=== PATIENT | female | born 1985 ===

== ENCOUNTER 2016-04-25 17:05 | Emergency (ER) | payer MEDICAID, OTHER ==
[2016-04-25 17:31] VITALS: BP 98/63
--- NOTE | 2016-05-02 08:34 | UC ---
Koko Damon SooYoung, scribed for LionelStpeh DO Gucci on 04/25/16 at 1916 . Lower Extremity/Ankle HPI - HPI Summary HPI Summary: A 30 y/o F presents to [facility] with intermittent, atraumatic pain on lateral-side of anterior L patella for past week. The pain is sharp and radiates mildly upward toward thigh, and the pain makes her limp. Denies edema, n/v, CP, SOB, rash. Aggravating factors: prolonged sitting, walking or standing, she denies that going up or down stairs as an aggravating factor. She rates the pain as 7 out of 10 at its worst. Currently at [facility], she rates it as a 4. She thought it might be related. Pt is 15 weeks and taking her pre- vitamins. - History of Current Complaint Chief Complaint: UCLowerExtremity Stated Complaint: LEG PAIN, AND DIARRHEA Time Seen by Provider: 04/25/16 18:49 Hx Obtained From: Patient ?: Yes Onset/Duration: Lasting Weeks - about one week, Still Present Severity Currently: Moderate Pain Intensity: 4 Pain Scale Used: 0-10 Numeric Aggravating Factor(s): Standing, Ambulation Alleviating Factor(s): Rest Able to Bear Weight: Yes - Risk Factors DVT Risk Factors: - Allergies/Home Medications Allergies/Adverse Reactions: Allergies Allergy/AdvReac Type Severity Reaction Status Date / Time No Known Allergies Allergy Verified 04/25/16 17:32 Home Medications: Home Medications Folic Acid 20 mg PO 04/25/16 [History] Vitamin [Calna] 1 tab PO 04/25/16 [History] PMH/Surg Hx/FS Hx/Imm Hx Previously Healthy: Yes Endocrine History Of: Denies: Diabetes, Thyroid Disease Cardiovascular History Of: Denies: Cardiac Disorders, Hypertension Respiratory History Of: Denies: COPD, Asthma GI/ History Of: Denies: Ulcer - Surgical History Surgical History: None - Family History Known Family History: Positive: Other - no fhx of clotting disorders Negative: Cardiac Disease, Hypertension, Diabetes - Social History Occupation: Student - post -doc at [employer] Lives: Alone Alcohol Use: None Substance Use Type: None Smoking Status (MU): Never Smoked Tobacco Review of Systems Constitutional: Negative Skin: Negative Eyes: Negative ENT: Negative Respiratory: Negative Cardiovascular: Negative Gastrointestinal: Negative Genitourinary: Negative Motor: Negative Neurovascular: Negative Musculoskeletal: Arthralgia - L anterior knee pain Neurological: Negative Psychological: Negative All Other Systems Reviewed And Are Negative: Yes Physical Exam Triage Information Reviewed: Yes Appearance: Well-Appearing, No Pain Distress, Well-Nourished Vital Signs: Initial Vital Signs Temp 97.0 F 04/25/16 17:20 Pulse 92 04/25/16 17:20 Resp 18 04/25/16 17:20 BP 98/63 04/25/16 17:20 Pulse Ox 100 04/25/16 17:20 Vital Signs Reviewed: Yes Eyes: Positive: Conjunctiva Clear. Negative: Discharge ENT: Positive: Hearing grossly normal. Negative: Muffled/hoarse voice Neck exam: Normal Neck: Positive: Supple Respiratory: Positive: Lungs clear, Normal breath sounds, No respiratory distress, No accessory muscle use Cardiovascular: Positive: RRR, No Murmur Musculoskeletal: Positive: No Edema, Other: - NML APPEARING KNEE; PERIPATELLER TENDERNESS TO PALPITATION; POS GRIND TEST; NO LIGAMENTOUS LAXITY; NO EFFUSION; NEG MCMURRAYS; NO CALF TENDERNESS, NO EDEMA Neurological: Positive: Alert, Muscle Tone Normal Psychological: Positive: Age Appropriate Behavior Skin Exam: Normal, Other - warm, dry, nml color Lower Extremity Course/Dx - Differential Dx/Diagnosis Differential Diagnosis/HQI/PQRI: Bursitis, Sprain, Strain Provider Diagnoses: patellofemoral syndrom Discharge - Discharge Plan Condition: Stable Disposition: HOME Patient Education Materials: Patellofemoral Pain Syndrome (ED) Referrals: No Primary Care Phys,NOPCP [Primary Care Provider] - [facility] PHYSICIAN REFERRAL [Outside] Additional Instructions: KNEE EXERCISE PROGRAM: It's important to strengthen the muscles around the knee. This protects the injured area and stabilizes a knee that's been loosened by ligament injury. EARLY - Even when motion of the knee is painful (even when wearing a splint ), you can begin isometric "quads" exercises. While sitting, hold the knee out, and contract the muscles to stiffen it. It shouldn't be straightened all the way -- stiffen it in a slightly-bent position. Lift the leg and draw a "T" with your foot, up to 100 times. When it becomes easy, add a weight on your foot. LATE - When the doctor advises you, you can begin moving the knee against resistance. The front muscles (quadriceps) are most important. While sitting at a [employer], straighten the knee forcefully while pushing a weight up with your ankle. Start with five to 10 pounds. Do 10 to 20 repetitions, increasing the weight as tolerated. Don't use more weight than is comfortable! Over a few weeks, work up to 35 to 50 pounds. Athletes should try to reach 70 to 90 pounds. EXERCISE PROGRAM FOR THE SHOULDER: Since the shoulder moves in so many directions, the joint attachment is weak. Muscles provide most of the stability to the shoulder. You must exercise your shoulder to prevent painful instability or stiffening. PASSIVE - These may be begun within a few days of the injury. While standing, lean forward, allowing the arm to hang down towards the floor. Move the arm in small circles while slowly twisting your chest towards and away from the hanging arm. Do this for one minute. ACTIVE - These may be performed when the doctor gives permission. Begin with the arms at the sides. Raise the arms forward (shoulder's width apart) until they reach shoulder level. Then slowly swing both arms back until they are aiming straight out away from each other. Then bring them forward again, and finally, lower them to your sides. Repeat 20 to 30 times. As you improve, put weights in your hands for the exercise. Start with one pound, and work up to 10 pounds. Never use more than is comfortable. Athletes may work up to 30 pounds. PHYSICAL THERAPY REFERRAL: You have been prescribed physical therapy. Treatments may include stretching, exercise, application of heat or cold, and other modalities. After an injury, PT can reduce swelling and pain. In recovery, PT is used to restore mobility and strength. Your specific treatment goals are: Reduction of Swelling (EGS, US, ice as needed) __X___ Pain Reduction (EGS, US, ice as needed) TENS Pack Fitting and Instruction Wound Hydrotherapy __X___ Preservation of Mobility Holiness of Mobility Strength Holiness _X____ Work or Sports Hardening This instruction sheet also serves as your PHYSICAL THERAPY REFERRAL! Please take it with you to the therapist, so he/she will be aware of your diagnosis and treatment plan. You may see the physical therapist of your choice for these treatments, but may wish to check with your insurance to be sure the provider you select is covered. It's important to see the doctor to whom you have been referred for follow up. KEEP YOUR KNEE ALUMNI COORDINATOR COLD WEATHER YOU WOULD LIKELY BENEFIT FROM OSTEOPATHIC TREATMENT. WE RECOMMEND THAT YOU FIND AN OSTEOPATHIC PHYSICIAN IN YOUR AREA WHO FOCUSES EXCLUSIVELY ON OSTEOPATHIC MANIPULATIVE MEDICINE WITH EXPERTISE IN MYOFACIAL, LYMPHATIC, VISCERAL AND INTEROSSEOUS WORK FOLLOW-UP CARE: You should establish with a private physician for follow-up care in 1-2 weeks. If you are unable to get a timely appointment, or if you are worsening, call us or return for re-evaluation. An additional resource available to assist in finding the appropriate physician for your health care needs is the [facility] Referral Center. You may contact them by calling [phone]. The documentation as recorded by the Koko feldman SooYoung accurately reflects the service I personally performed and the decisions made by me, Steph Flowers DO.
== END 2016-04-25 19:37 | disposition home or self-care (01) ==
LOC: UCEAST 17:05
DX: O26.892 Other specified pregnancy related conditions, second trimester (principal); Z3A.15 15 weeks gestation of pregnancy; M25.562 Pain in left knee
CPT/HCPCS: 99211; G0463